=== PATIENT | female | born 1960 | race African-American/Black ===

== ENCOUNTER 2023-01-25 10:18 | Emergency (ER) | payer MEDICAID ==
[~2023-01-25] VITALS: Ht 165.1 cm; Wt 80.7 kg
[2023-01-25 10:20] VITALS: BP_SYST 128
== END 2023-01-25 11:29 ==
LOC: SED 10:18
DX: R51.9 Headache, unspecified (principal); R03.0 Elevated blood-pressure reading, without diagnosis of hypertension; Z79.899 Other long term (current) drug therapy
CPT/HCPCS: 99281

== ENCOUNTER 2023-01-30 08:35 | Emergency (ER) | payer MEDICAID ==
[~2023-01-30] VITALS: Ht 165.1 cm; Wt 77.1 kg
--- NOTE | 2023-01-30 08:45 | NUR ---
Placed in room 02 . Placed on desk monitor, blood pressure machine and pulse oximeter. To gown for exam. Side rails up. Report given to THAI ALLISON.
[2023-01-30 08:46] VITALS: BP_SYST 184
--- NOTE | 2023-01-30 08:49 | NUR ---
PT WAL[facility]AD[facility] ONSET HEADACHE X 1 WEEK, REPORTS MILD BLURRY VISION FOR TWO WEEKS, HAS NOT SEEN AN OPTHAMOLOGIST. REPORTS THAT SHE HAD A FALL 2 WEEKS AGO ETOH RELATED, WAS HOSPITALIZED FOR HEAD TRAUMA, DENIES BLEED. HIGH BP @184/87. RESP EVEN AND UNLABORED. SKIN W/D/I. NEURO CHECKS INTACT.
--- NOTE | 2023-01-30 09:05 | NUR ---
DR FISCHER IN ROOM FOR EXAM
[2023-01-30] MEDS ORDERED: cloNIDine HCL 0.1 MG TABLET PO ONE (09:15)
[2023-01-30 09:39] LABS: BASOPHILS # (AUTO) 0.1 K/uL (0.0-0.2); EOSINOPHILS # (AUTO) 0.2 K/uL (0.0-0.4); EOSINOPHILS % (AUTO) 3.5 % (0.0-4.0); HEMATOCRIT 38.5 % (36-48); HEMOGLOBIN 12.4 g/dL (12.0-16.0); LYMPHOCYTES # (AUTO) 1.1 K/uL (1.0-5.5); MEAN CORPUSCULAR HEMOGLOBIN 30 pg (27-31); MEAN CORPUSCULAR HGB CONC 32 % (32-36); MEAN CORPUSCULAR VOLUME 93 fL (79.0-98.0); MONOCYTES # (AUTO) 0.5 K/uL (0.0-1.0); MONOCYTES % (AUTO) 8.4 % (1.7-9.3); NEUTROPHILS % (AUTO) 68.1 % (40.0-70.0); PLATELET COUNT (AUTO) 244 K/uL (130-430); RED BLOOD CELL COUNT(AUTO) 4.14 MIL/uL (4.2-6.2); RED CELL DISTRIBUTION WIDTH 15.6 % (9.0-15.0); WHITE BLOOD COUNT (AUTO) 5.9 K/uL (4.8-10.8)
--- NOTE | 2023-01-30 09:41 | NUR ---
MEDICATED ORDERD, TEACHING DONE.
[2023-01-30 10:10] LABS: ALANINE AMINOTRANSFERASE 61 U/L (12-78); ALBUMIN 3.8 g/dL (3.4-4.8); ANION GAP 6 (5-15); ASPARTATE AMINOTRANSFERASE 29 U/L (10-37); CALCIUM 9.5 mg/dL (8.4-11.0); CHLORIDE 109 mmol/L (98-107); CREATININE 0.96 mg/dL (0.55-1.30); GFR AFRICAN AMERICAN 75 mL/min (>90); GLUCOSE 100 mg/dL (70-99); TOTAL BILIRUBIN 0.4 mg/dL (0.0-1.0); UREA NITROGEN, BLOOD 15 mg/dL (8-21)
[2023-01-30] MEDS ORDERED: CLON0.3T PO (10:48)
--- NOTE | 2023-01-30 11:01 | NUR ---
BP 183/116, DR FISCHER INFORMED, NO FURTHER ORDERS RECEIVED. PT UP FOR DISCHARGE.
--- NOTE | 2023-01-30 11:15 | NUR ---
Patient given written and verbal discharge instructions and verbalizes understanding. ER MD discussed with patient the results and treatment provided. Patient in stable condition. ID arm band removed. Rx of CLOIDINE given. Patient educated on pain management and to follow up with PMD. Pain Scale . Opportunity for questions provided and answered. Medication side effect fact sheet provided.
[2023-01-30 11:20] VITALS: BP_SYST 183
== END 2023-01-30 11:15 | disposition home or self-care (01) ==
LOC: SED 08:35
DX: I16.0 Hypertensive urgency (principal); I10 Essential (primary) hypertension; R51.9 Headache, unspecified; R07.9 Chest pain, unspecified; Z79.899 Other long term (current) drug therapy
CPT/HCPCS: 36415; 71045; 80053; 83880; 84484; 85025; 93005; 99285